=== PATIENT | female | born 1975 | race African-American/Black ===

== ENCOUNTER 2020-02-20 13:43 | Emergency (ER) | payer OTHER ==
[2020-02-20] MEDS ORDERED: KETOROLAC TROMETHAMINE INJ/PF 30 MG/1 ML SDV IM ONE (13:58)
--- NOTE | 2020-02-20 14:00 | ER Document Report ---
ED Medical Screen (RME) - General Chief Complaint: Lower Abdominal Pain Stated Complaint: LOWER ABDOMINAL PAIN Time Seen by Provider: 02/20/20 13:54 Mode of Arrival: Ambulatory Information source: Patient Notes: 44-year-old female presented to ED for lower abdominal pain. She states she is got pressure and pulling sensation in her umbilicus and pain in her pelvic area. She states she did have a uterine ablation in 2016 she had both of her tubes removed and she has had multiple ovarian cyst and endometriosis removed. She does have a history of high blood pressure. She states she has pain when she urinates pain when she moves pain when she does anything. She does not have any vaginal bleeding or discharge. She states she does not smoke drink or use any illicit drugs. I have greeted and performed a rapid initial assessment of this patient. A comprehensive ED assessment and evaluation of the patient, analysis of test results and completion of medical decision making process will be conducted by an additional ED providers. Physical Exam - Vital signs Vitals: Temp Pulse Resp BP Pulse Ox 98.4 F 85 16 151/96 H 97 02/20/20 13:48 02/20/20 13:48 02/20/20 13:48 02/20/20 13:48 02/20/20 13:48 Course - Vital Signs Vital signs: Temp Pulse Resp BP Pulse Ox 98.4 F 85 16 151/96 H 97 02/20/20 13:48 02/20/20 13:48 02/20/20 13:48 02/20/20 13:48 02/20/20 13:48
[2020-02-20 15:01] LABS: ABSOLUTE BASOPHILS # (AUTO) 0.1 10^3/uL (0.0-0.2); ABSOLUTE EOSINOPHILS # (AUTO) 0.1 10^3/uL (0.0-0.6); ABSOLUTE LYMPHOCYTES (AUTO) 1.3 10^3/uL (0.5-4.7); ABSOLUTE MONOCYTES (AUTO) 0.3 10^3/uL (0.1-1.4); ABSOLUTE NEUT (AUTO) 3.2 10^3/uL (1.7-8.2); BASOPHILS % (AUTO) 1.2 % (0-2); EOSINOPHILS % (AUTO) 1.5 % (0-6); HEMOGLOBIN 13.1 g/dL (12.0-15.5); LYMPHOCYTES % (AUTO) 26.4 % (13-45); MEAN CORPUSCULAR HEMOGLOBIN 28.7 pg (27.0-33.4); MEAN CORPUSCULAR HGB CONC 34.5 g/dL (32.0-36.0); MEAN CORPUSCULAR VOLUME 83 fl (80-97); MONOCYTES % (AUTO) 5.8 % (3-13); PLATELET COUNT 271 10^3/uL (150-450); RED BLOOD COUNT 4.58 10^6/uL (3.72-5.28); SEGMENTED NEUTROPHILS % (AUTO) 65.1 % (42-78); TOTAL CELLS COUNTED % (AUTO) 100 %; WHITE BLOOD COUNT 4.9 10^3/uL (4.0-10.5)
[2020-02-20 15:10] LABS: APPEARANCE,URINE SLIGHTLY-CLOUDY; BILIRUBIN,URINE NEGATIVE (NEGATIVE); COLOR,URINE YELLOW; GLUCOSE, URINE NEGATIVE (NEGATIVE); KETONES,URINE NEGATIVE (NEGATIVE); LEUKOCYTE ESTERASE,URINE MODERATE (NEGATIVE); NITRITE,URINE NEGATIVE (NEGATIVE); PROTEIN,URINE NEGATIVE (NEGATIVE); URINE SPECIFIC GRAVITY 1.015; UROBILINOGEN,URINE NEGATIVE mg/dL (<2.0)
--- NOTE | 2020-02-20 15:13 | RADIOLOGY REPORT (SQ) ---
EXAM DESCRIPTION: U/S NON-OB PELVIS TV W/O DOP IMAGES COMPLETED DATE/TIME: 02/20/2020 3:01 pm REASON FOR STUDY: Pelvic pain COMPARISON: None. TECHNIQUE: Dynamic and static grayscale images acquired of the pelvis via transvaginal approach and recorded on PACS. Additional selected color Doppler and spectral images recorded. LIMITATIONS: None. FINDINGS: UTERUS: Uterus demonstrates heterogeneous echotexture. There are several fibroids. The 2 largest are measured 2.8 x 2.8 x 2.8 cm in 2.5 x 2.2 x 2.4 cm respectively. ENDOMETRIAL STRIPE: No focal or generalized thickening. No masses. A small endometrial calcification is noted. CERVIX: No nabothian cysts. RIGHT OVARY AND DOPPLER: Normal size. No worrisome masses. Normal arterial vascular flow without evid ence for torsion. LEFT OVARY AND DOPPLER: Left ovary is not visualized secondary to overlying bowel gas. FREE FLUID: None noted. OTHER: No other significant finding. MEASUREMENTS: UTERUS: 8.4 x 5.2 x 5.2 cm. ENDOMETRIAL STRIPE: 6.0 mm. RIGHT OVARY: 3.4 x 1.9 x 1.9 cm. LEFT OVARY: Not visualized. IMPRESSION: Multiple uterine fibroids. Left ovary is obscured by overlying bowel gas. TECHNICAL DOCUMENTATION: JOB ID: [id number] 2010 Shareholder [employer]- All Rights Reserved Rev-09/09 Reading location - IP/workstation name: [email or web address]
[2020-02-20 15:14] LABS: ALBUMIN 3.8 g/dL (3.5-5.0); ALKALINE PHOSPHATASE 44 U/L (38-126); ANION GAP 11 (5-19); ASPARTATE AMINO TRANSFERASE 17 U/L (14-36); BILIRUBIN,TOTAL 1.5 mg/dL (0.2-1.3); BLOOD UREA NITROGEN 9 mg/dL (7-20); CALCIUM 8.8 mg/dL (8.4-10.2); CARBON DIOXIDE 25 mmol/L (22-30); CHLORIDE 105 mmol/L (98-107); GLUCOSE 114 mg/dL (75-110); POTASSIUM 3.4 mmol/L (3.6-5.0); TOTAL PROTEIN 6.8 g/dL (6.3-8.2)
--- NOTE | 2020-02-20 16:58 | ER Document Report ---
ED General - General Chief Complaint: Abdominal Pain Stated Complaint: LOWER ABDOMINAL PAIN Time Seen by Provider: 02/20/20 13:54 Mode of Arrival: Ambulatory Notes: Patient is a 44-year-old -[place] female with a history of endometriosis, prior ovarian cyst, prior uterine fibroids who presents to the emergency department today with a chief complaint pelvic pain and pressure for the past couple days. She states that it is a pressure and sharp pain in the pelvic region. Radiates across the lower abdomen. Denies any injury or trauma. Denies any dyspareunia. No bleeding or discharge. No urinary compla ints. No constipation or obstipation. No diarrhea. No vomiting or nausea. No fevers. - Related Data Allergies/Adverse Reactions: No Known Allergies Allergy (Verified 02/20/20 16:33) Home Medications: bp Past Medical History - General Information source: Patient - Social History Smoking Status: Never Smoker Chew tobacco use (# tins/day): No Frequency of alcohol use: None Drug Abuse: None Family History: Reviewed & Not Pertinent Patient has homicidal ideation: No - Past Medical History Cardiac Medical History: Reports: Hx Hypertension Past Surgical History: Reports: Hx Gynecologic Surgery - endometrosis fibroids fallopian tubes Review of Systems - Review of Systems Constitutional: denies: Fever EENT: denies: Nose congestion Cardiovascular: denies: Dyspnea Respiratory: denies: Sputum Gastrointestinal: denies: Constipation Genitourinary: denies: Flank pain Female Genitourinary: denies: Irregular period Musculoskeletal: denies: Muscle pain Skin: denies: Lesions Hematologic/Lymphatic: denies: Easy bruising Neurological/Psychological: denies: Weakness Physical Exam - Vital signs Vitals: Temp Pulse Resp BP Pulse Ox 98.4 F 85 16 151/96 H 97 02/20/20 13:48 02/20/20 13:48 02/20/20 13:48 02/20/20 13:48 02/20/20 13:48 - General General appearance: Appears well, Alert In distress: None - Respiratory Respiratory status: No respiratory distress Chest status: Nontender Breath sounds: Normal Chest palpation: Normal - Cardiovascular Rhythm: Regular Heart sounds: Normal auscultation - Abdominal Inspection: Normal Distension: No distension Bowel sounds: Normal Tenderness: Tender - Right lower and left lower quadrant and suprapubic region - Back Back: No: CVA tenderness - Neurological Neuro grossly intact: Yes Cognition: Normal Orientation: AAOx4 - Psychological Associated symptoms: Normal affect, Normal mood - Skin Skin Temperature: Warm Skin Moisture: Dry Skin Color: Normal Course - Re-evaluation Re-evalutation: 02/20/20 17:09 History and physical consistent with uterine leiomyoma. Patient will be started on naproxen referred back to [facility]. She requested a note for work for couple days which we will rachel. Counseled her at length regarding the importance of outpatient follow-up and advised that she return here any ER immediately with any new, persistent or worsening symptoms. She verbalized understood and agreed. - Vital Signs Vital signs: Temp Pulse Resp BP Pulse Ox 98.4 F 85 16 151/96 H 97 02/20/20 13:48 02/20/20 13:48 02/20/20 13:48 02/20/20 13:48 02/20/20 13:48 - Laboratory Result Diagrams: 02/20/20 14:26 02/20/20 14:26 Laboratory results interpreted by me: 02/20/20 02/20/20 14:26 14:26 Potassium 3.4 L Glucose 114 H Total Bilirubin 1.5 H Ur Leukocyte Esterase MODERATE H Discharge - Discharge Clinical Impression: Uterine leiomyoma Qualifiers: Uterine leiomyoma location: unspecified location Qualified Code(s): D25.9 - Leiomyoma of uterus, unspecified Condition: Stable Disposition: HOME, SELF-CARE Instructions: Pelvic Pain ([facility]) Additional Instructions: Please follow-up with your collar feller as discussed. Please return here or any ER immediately with any new, persistent or worsening symptoms. Prescriptions: Naproxen 500 mg PO BID PRN #20 tablet PRN Reason: Forms: Return to Work Referrals: RANDOLPH BORRERO MD [ACTIVE PROVISIONAL STAFF] - Follow up as needed
[2020-02-20] MEDS ORDERED: KETOROLAC TROMETHAMINE INJ/PF 30 MG/1 ML SDV ONE (17:34)
[2020-02-20 17:39] VITALS: BP 156/85
== END 2020-02-20 17:58 | disposition home or self-care (01) ==
LOC: ER 13:43
DX: D25.9 Leiomyoma of uterus, unspecified (principal); R10.30 Lower abdominal pain, unspecified; I10 Essential (primary) hypertension
CPT/HCPCS: 99285; 96372; 36415; 87086; 85025; 80053; 81001; 76830; J1885